=== PATIENT | female | born 1975 | race Hispanic/Latino ===

== ENCOUNTER 2018-05-09 18:51 | Emergency (ER) | payer SELFPAY ==
[2018-05-09 20:36] LABS: Urine Blood 2+ (NEG); Urine Glucose NEGATIVE (NEG); Urine Protein NEGATIVE (NEG)
[2018-05-09 21:27] LABS: BUN Blood Urea Nitrogen 11 mg/dL (7-18); Bicarbonate 28 mmol/L (21-32); Glucose Level 89 mg/dL (74-106); HCG, Quantitative 8737 mIU/mL (1-3); Potassium 4.3 mmol/L (3.5-5.1); Sodium Level 141 mmol/L (136-145)
--- NOTE | 2018-05-09 21:59 | RAD REPORT ---
EXAM DESCRIPTION: US - Transvaginal OB - 05/09/2018 9:47 pm CLINICAL HISTORY: with abdominal pain and vaginal bleeding COMPARISON: None. FINDINGS: The uterus 8 x 6 x 6 centimeters. A gestational sac is present within the endometrium. Wi thin this is a yolk sac measuring 5.5 millimeters. A pole is not seen. The right ovary is normal in size and echotexture. Left ovary is not seen. Right and left adnexa appear unremarkable. No significant free fluid is seen. IMPRESSION: Gestational sac within the endometrium. The yolk sac is mildly enlarged. This is associated with an increased risk of a failed . A pole is not visualized. This still may represent an early viable IUP or an incomplete abortio n. This should be correlated clinically and with serial beta HCG levels. Follow up endovaginal sonogram in 1 week recommended
--- NOTE | 2018-05-09 22:02 | ER ---
Nurse's Notes [facility] Name: Myriam Freeman Age: 42 yrs Sex: Female : 1975 Arrival Date: 05/09/2018 Time: 18:55 Bed 26 Private MD: Diagnosis: Threatened Presentation: 05/09 19:07 Presenting complaint: Patient states: LMP 03/12/2018. vaginal bleeding started this ak1 morning. dark brown spotting. Transition of care: patient was not received from another setting of care. Onset of symptoms was May 09, 2018. Risk Assessment: Do you want to hurt yourself or someone else? Patient reports no desire to harm self or others. Initial Sepsis Screen: Does the patient meet any 2 criteria? No. Patient's initial sepsis screen is negative. Does the patient have a suspected source of infection? No. Patient's initial sepsis screen is negative. 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. Care prior to arrival: None. 19:07 Method Of Arrival: Ambulatory ak1 19:07 Acuity: SANDIE 3 ak1 Triage Assessment: 19:09 General: Appears in no apparent distress. Behavior is calm, cooperative. 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 - Social history:: Smoking status: Patient uses tobacco products. - Ebola Screening: : No symptoms or risks identified at this time. Screenin:37 Abuse screen: Denies threats or abuse. Denies injuries from another. Nutritional rv screening: No deficits noted. Tuberculosis screening: No symptoms or risk factors identified. Fall Risk None identified. Assessment: 20:35 Obstetrical Assessment: General assessment: awake and alert, Patient reports Abdominal rv pain, vaginal bleeding. General: Appears in no apparent distress. comfortable, Behavior is calm, cooperative. Pain: Complains of pain in abdomen. Neuro: Level of Consciousness is awake, alert, obeys commands, Oriented to person, place, time, situation. Cardiovascular: Capillary refill < 3 seconds. Respiratory: Airway is patent. GI: Abdomen is round. : Reports vaginal bleeding that is bright red. EENT: No signs and/or symptoms were reported regarding the EENT system. Derm: Skin is intact. Musculoskeletal: No signs and/or symptoms reported regarding the musculoskeletal system. Vital Signs: 19:09 BP 101 / 61; Pulse 83; Resp 18; Temp 98.2; Pulse Ox 98% on R/A; Weight 63.5 kg (R); ak1 Height 5 ft. 1 in. (154.94 cm) (R); Pain 8/10; 20:31 BP 90 / 64; Pulse 65; Resp 17 S; Pulse Ox 98% on R/A; rv 21:00 BP 107 / 69; Pulse 66; Resp 17; Pulse Ox 99% on R/A; rv 23:50 BP 105 / 61; Pulse 66; Resp 16; Pulse Ox 100% ; rv 05/10 00:00 BP 102 / 69; Pulse 72; Resp 17; Pulse Ox 99% on R/A; rv 00:15 BP 99 / 69; Pulse 69; Resp 19; Pulse Ox 99% ; rv 00:30 BP 106 / 67; Pulse 68; Resp 16; Pulse Ox 100% ; rv 05/09 19:09 Body Mass Index 26.45 (63.50 kg, 154.94 cm) ak1 ED Course: 05/09 18:55 Patient arrived in ED. rg4 19:08 Triage completed. ak1 19:09 Arm band placed on Patient placed in waiting room, Patient notified of wait time. ak1 20:14 Lizzie Santos FNP-C is PHCP. kb 20:14 Tc Rome MD is Attending Physician. kb 20:37 Patient has correct armband on for positive identification. Bed in low position. Call rv light in reach. Side rails up X 1. Adult w/ patient. Pulse ox on. NIBP on. 21:49 US Transvaginal Ob In Process Unspecified. EDMS 05/10 00:52 No provider procedures requiring assistance completed. IV discontinued, bleeding rv controlled, No redness/swelling at site. Pressure dressing applied. Administered Medications: 00:13 Drug: RhoGAM (Human) 300 mcg Route: IM; Site: right deltoid; rv Outcome: 05/09 22:01 Discharge ordered by MD. lopez 05/10 00:53 Discharged to home ambulatory. rv Condition: good Discharge instructions given to patient, family, Instructed on discharge instructions, follow up and referral plans. Demonstrated understanding of instructions, follow-up care. 00:53 Patient left the ED. rv Signatures: Dispatcher [employer] EDLizzie Fleming, JENNIFFER GALLEGOS-Flora Bradley, RN RN Penny Nava rg4 Ronnell Alexander, RN RN rv Corrections: (The following items were deleted from the chart) 05/09 20:39 20:38 BP 90 / 64; Pulse 65bpm; Resp 17bpm; Spontaneous; Pulse Ox 98% RA; rv rv
--- NOTE | 2018-05-09 22:03 | EDPHYS ---
Physician Documentation [facility] Name: Myriam Freeman Age: 42 yrs Sex: Female : 1975 Arrival Date: 05/09/2018 Time: 18:55 Bed 26 Private MD: ED Physician Tc Rome HPI: 05/09 21:34 This 42 yrs old Female presents to ER via Ambulatory with complaints of kb Vaginal Bleeding, + Preg <12wks. 21:34 The patient presents to the emergency department with abdominal pain, of the right kb lower quadrant and left lower quadrant, that started this morning, described as constant, crampy, vaginal bleeding, described as spotting. The estimated gestational age is 8 weeks. course: care: at a clinic, Leakage of Fluid: none appreciated, Ultrasound: the patient has not had an ultrasound, Risk/complications: no obvious risks or complications are appreciated. Previous pregnancies: the patient has never been . Associated signs and symptoms: Pertinent positives: abdominal pain, vaginal bleeding, Pertinent negatives: chest pain, diarrhea, dysuria, fever, frequency, nausea, ruptured membranes, seizure, shortness of breath, vaginal discharge, vomiting. The patient has not experienced similar symptoms in the past. The patient has not recently seen a physician. Pt reports lower abd pain and spotting since this morning. 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 - Social history:: Smoking status: Patient uses tobacco products. - Ebola Screening: : No symptoms or risks identified at this time. ROS: 21:41 Constitutional: Negative for fever, chills, and weight loss, Cardiovascular: Negative kb for chest pain, palpitations, and edema, Respiratory: Negative for shortness of breath, cough, wheezing, and pleuritic chest pain, MS/Extremity: Negative for injury and deformity, Skin: Negative for injury, rash, and discoloration, Neuro: Negative for headache, weakness, numbness, tingling, and seizure. 21:41 Abdomen/GI: Positive for abdominal cramps, Negative for nausea, vomiting, and diarrhea. 21:41 : Positive for vaginal bleeding. Exam: 21:43 Constitutional: This is a well developed, well nourished patient who is awake, alert, kb and in no acute distress. Head/Face: Normocephalic, atraumatic. Neck: Trachea midline, no thyromegaly or masses palpated, and no cervical lymphadenopathy. Supple, full range of motion without nuchal rigidity, or vertebral point tenderness. No Meningismus. Chest/axilla: Normal chest wall appearance and motion. Nontender with no deformity. No lesions are appreciated. Cardiovascular: Regular rate and rhythm with a normal S1 and S2. No gallops, murmurs, or rubs. Normal PMI, no JVD. No pulse deficits. Respiratory: Lungs have equal breath sounds bilaterally, clear to auscultation and percussion. No rales, rhonchi or wheezes noted. No increased work of breathing, no retractions or nasal flaring. Back: No spinal tenderness. No costovertebral tenderness. Full range of motion. Skin: Warm, dry with normal turgor. Normal color with no rashes, no lesions, and no evidence of cellulitis. MS/ Extremity: Pulses equal, no cyanosis. Neurovascular intact. Full, normal range of motion. Neuro: Awake and alert, GCS 15, oriented to person, place, time, and situation. Cranial nerves II-XII grossly intact. Motor strength 5/5 in all extremities. Sensory grossly intact. Cerebellar exam normal. Normal gait. 21:43 Abdomen/GI: Inspection: abdomen appears normal, Bowel sounds: normal, in all quadrants, Palpation: soft, in all quadrants, moderate abdominal tenderness, in the right lower quadrant and left lower quadrant. Vital Signs: 19:09 BP 101 / 61; Pulse 83; Resp 18; Temp 98.2; Pulse Ox 98% on R/A; Weight 63.5 kg (R); ak1 Height 5 ft. 1 in. (154.94 cm) (R); Pain 8/10; 20:31 BP 90 / 64; Pulse 65; Resp 17 S; Pulse Ox 98% on R/A; rv 21:00 BP 107 / 69; Pulse 66; Resp 17; Pulse Ox 99% on R/A; rv 23:50 BP 105 / 61; Pulse 66; Resp 16; Pulse Ox 100% ; rv 05/10 00:00 BP 102 / 69; Pulse 72; Resp 17; Pulse Ox 99% on R/A; rv 00:15 BP 99 / 69; Pulse 69; Resp 19; Pulse Ox 99% ; rv 00:30 BP 106 / 67; Pulse 68; Resp 16; Pulse Ox 100% ; rv 05/09 19:09 Body Mass Index 26.45 (63.50 kg, 154.94 cm) ak1 MDM: 05/09 20:16 Patient medically screened. kb 21:42 Data reviewed: vital signs, nurses notes. Data interpreted: Pulse oximetry: on room air kb is 99 %. Interpretation: normal. Counseling: I had a detailed discussion with the patient and/or guardian regarding: the historical points, exam findings, and any diagnostic results supporting the discharge/admit diagnosis, lab results, radiology results, the need for outpatient follow up, an OB/Gyne specialist, to return to the emergency department if symptoms worsen or persist or if there are any questions or concerns that arise at home. 05/09 20:14 Order name: Quantitative Hcg; Complete Time: 21:30 kb 05/09 20:14 Order name: Abo/rh Typing 05/09 20:14 Order name: Basic Metabolic Panel; Complete Time: 21:30 kb 05/09 20:14 Order name: CBC with Diff; Complete Time: 22:58 kb 05/09 20:28 Order name: Urine Dipstick--Ancillary (enter results); Complete Time: 20:43 ag4 05/09 20:28 Order name: Urine --Ancillary (enter results); Complete Time: 20:43 ag4 05/09 21:22 Order name: US Transvaginal Ob; Complete Time: 22:01 kb 05/09 21:24 Order name: ABO/RH no charge; Complete Time: 21:30 EDMA 05/09 22:22 Order name: Rh Typing [facility] [place] 05/09 22:22 Order name: Antibody Screen [facility] [place] 05/09 22:22 Order name: Fetalscreen [facility] [place] 05/09 22:22 Order name: Cord Rh type [facility] [place] 05/09 22:22 Order name: Rhogam [facility] [place] 05/09 20:14 Order name: Urine Test (obtain specimen); Complete Time: 20:33 kb 05/09 20:14 Order name: IV Saline Lock; Complete Time: 20:33 kb 05/09 20:14 Order name: Labs collected and sent; Complete Time: 20:33 kb 05/09 20:14 Order name: NPO; Complete Time: 20:33 kb 05/09 20:14 Order name: Urine Dipstick-Ancillary (obtain specimen); Complete Time: 20:33 kb Administered Medications: 05/10 00:13 Drug: RhoGAM (Human) 300 mcg Route: IM; Site: right deltoid; rv Disposition: 01:40 Co-signature as Attending Physician, Tc Rome MD. Disposition: 05/09/18 22:01 Discharged to Home. Impression: Threatened . - Condition is Stable. - Discharge Instructions: Threatened Miscarriage, [id number], Pelvic Rest. - Medication Reconciliation Form, Thank You Letter, Antibiotic Education, Prescription Opioid Use form. - Follow up: Emergency Department; When: As needed; Reason: Worsening of condition. Follow up: Private Physician; When: 2 - 3 days; Reason: Recheck today's complaints, Continuance of care, Re-evaluation by your physician. Signatures: Dispatcher [employer] EDMA Lizzie Santos, ROSY-Chantelle HOLLOW HANDLE BENCH WORKER-Flora Bradley, RN RN ak1 Tc Rome MD MD Ronnell Alexander RN RN rv Corrections: (The following items were deleted from the chart) 00:53 05/09 22:01 05/09/2018 22:01 Discharged to Home. Impression: Threatened . rv Condition is Stable. Forms are Medication Reconciliation Form, Thank You Letter, Antibiotic Education, Prescription Opioid Use. Follow up: Emergency Department; When: As needed; Reason: Worsening of condition. Follow up: Private Physician; When: 2 - 3 days; Reason: Recheck today's complaints, Continuance of care, Re-evaluation by your physician. kb
== END 2018-05-10 00:53 | disposition home or self-care (01) ==
LOC: ER 18:51
DX: O20.0 Threatened abortion (principal); O99.331 Smoking (tobacco) complicating pregnancy, first trimester; Z3A.08 8 weeks gestation of pregnancy
CPT/HCPCS: 36415; 76817; 80048; 81003; 81025; 84702; 85025; 86850; 86900; 86901; J2790